=== PATIENT | female | born 1985 | race Hispanic/Latino ===

== ENCOUNTER 2019-08-04 22:57 | Emergency (ER) | payer MEDICAID, SELFPAY ==
[~2019-08-04 22:57] MED LIST: Iopamidol 370 76% 100 ML VIAL ONE
[2019-08-04 23:38] LABS: BHCG - Serum Negative (NEGATIVE); Pregs Control Bar Appear? YES (CONTROL BAR)
[2019-08-04 23:41] LABS: Bilirubin Negative (Negative); Blood, Urine Large (Negative); Glucose, Urine (Dipstick) Negative (Negative); Leukocyte Trace (Negative); Nitrite Negative (Negative); Protein, Urine (Dipstick) 100 mg/dL (Neg-Trace); Urobilinogen 0.2 mg/dL (Less than 2)
[2019-08-04 23:42] LABS: Clarity Cloudy (Clear)
[2019-08-04 23:43] LABS: Bacteria/HPF Rare-Few HPF (None Seen); RBC/HPF Greater than 50 HPF (0-3); Squamous Epithelial None Seen HPF (0-3)
[2019-08-04 23:46] LABS: #Basophils 0.1 thou/uL (0.0-0.2); #Eosinphils 0.1 thou/uL (0.0-0.7); #Lymphocytes 1.2 thou/uL (1.20-3.40); #Monocytes 0.9 thou/uL (0.11-0.59); #Neutrophils 7.7 thou/uL (1.40-6.50); %Basophils 0.5 % (0.0-1.0); %Eosinophils 0.8 % (0.0-10.0); %Monocytes 9.2 % (0.0-10.0); %Neutrophils 77.4 % (42.0-75.0); Hemoglobin 11.9 g/dL (12.0-16.0); Hypochromia SLIGHT = 6-15 cells (100X) (0-5/hpf); MDiff Complete? YES; Mean Corpuscular HGB CONC 29.4 g/dL (32.0-36.0); Mean Corpuscular Hemoglobin 22.8 pg (27.0-31.0); Mean Corpuscular Volume 77.5 fL (78.0-98.0); Mean Platelet Volume 8.2 fL (7.4-10.4); Platelet Count 294 thou/uL (130-400); Platelet Morphology Comment Appears Adequate; RBC Distribution Width 16.4 % (11.5-14.5); White Blood Cell (WBC) Count 9.9 thou/uL (4.8-10.8)
[2019-08-04 23:50] LABS: ALT (SGPT) 55 U/L (8-55); AST (SGOT) 32 U/L (5-34); Albumin 4.1 g/dL (3.5-5.0); Alkaline Phosphatase 108 U/L (40-110); Anion Gap 15 mmol/L (10-20); BUN (Urea Nitrogen) 7 mg/dL (7.0-18.7); Bilirubin, Direct 0.2 mg/dL (0.1-0.3); Bilirubin, Total 0.3 mg/dL (0.2-1.2); Calc. Creatinine Clearance 0 mL/min (70-130); Calcium 8.9 mg/dL (7.8-10.44); Carbon Dioxide 19 mmol/L (22-29); Chloride 107 mmol/L (98-107); Estimated GFR-MDRD Greater than 90; Globulin 3.3 g/dL (2.4-3.5); Glucose 120 mg/dL (70-105); Lipase 24 U/L (8-78); Potassium 3.8 mmol/L (3.5-5.1); Protein, Total 7.4 g/dL (6.0-8.3); Sodium 137 mmol/L (136-145)
[2019-08-04 23:51] LABS: CRP (Inflammatory) 2.77 mg/dL (= or < 0.5)
[2019-08-05] MEDS ORDERED: Morphine 4 MG/ML VIAL ONE (00:41)
--- NOTE | 2019-08-05 08:12 | CT ---
PRELIMINARY REPORT/[facility]/EMERGENCY AFTER HOURS PROCEDURE PROCEDURE: CT Scan Abdomen and Pelvis with IV Contrast Material. HISTORY: RIGHT lower quadrant pain. TECHNIQUE: Axial images were performed with multiplanar reconstructions. The patient was given iodin ated contrast intravenously. The patient was not given oral contrast material. COMPARISONS: None . FINDINGS: Clear lung bases. Liver, spleen, adrenals, and pancreas show no abnormality. Kidneys show normal enhancement with no o bstruction. Normal biliary tract. No abdominal ascites or pneumoperitoneum. Normal aorta. No lymphadenopathy. No bowel obstruction or inflammation and normal appendix in the RIGHT lower quadrant. Pelvis shows 4.2 cm RIGHT adnexal cyst. No free fluid in the pelvis. Normal urinary bladder. No acute bony abnormality. IMPRESSION: 4.2 cm RIGHT adnexal cyst. Pelvic ultrasound may be helpful for further evaluation. Normal appendix RIGHT lower quadrant. ELECTRONICALLY SIGNED BY: Cristofer Diaz MD Aug 05, 2019 12:31:53 AM CDT This report is intended for review by the ordering physician only, in accordance of law. If you recei ve this report in error, please call [facility] at [phone]. FINAL REPORT EMERGENT AFTER HOURS CT ABDOMEN AND PELVIS: IMPRESSION: Agree with the preliminary interpretation. POS: VIPIN
== END 2019-08-05 01:05 | disposition short-term general hospital (02) ==
LOC: NAV ERS 22:57
DX: N83.201 Unspecified ovarian cyst, right side (principal)
CPT/HCPCS: 74177; 80053; 80076; 81003; 81015; 82150; 82550; 83605; 83690; 84484; 84703; 85025; 86140; 87040; 87086; 94760; 96361; 96374; J2270; Q9967

== ENCOUNTER 2021-03-08 14:59 | Emergency (ER) | payer OTHER, SELFPAY ==
[2021-03-08] MEDS ORDERED: Lidocaine 1% (PF) 30 ML VIAL ONE (15:31)
[2021-03-08] MEDS ORDERED: Bacitracin 1 PK ONE (15:31)
== END 2021-03-08 16:05 | disposition home or self-care (01) ==
LOC: NAV ERS 14:59
DX: S61.412A Laceration without foreign body of left hand, initial encounter (principal); W26.0XXA Contact with knife, initial encounter
CPT/HCPCS: 12041; J2001

== ENCOUNTER 2021-03-16 17:51 | Emergency (ER) | payer SELFPAY | END 2021-03-16 18:33 | disposition home or self-care (01) | LOC: NAV ERS 17:51 | DX: Z48.02 Encounter for removal of sutures (principal) | CPT/HCPCS: 99282 ==